=== PATIENT | female | born 1950 | race Caucasian/White ===

== ENCOUNTER 2022-08-05 14:08 | Emergency (ER) | payer OTHER ==
[~2022-08-05] VITALS: Ht 162.6 cm; Wt 86.2 kg
[2022-08-05 14:19] VITALS: BP 141/67
[2022-08-05 17:00] LABS: APPEARANCE,URINE CLEAR (CLEAR); BILIRUBIN,URINE NEGATIVE (NEGATIVE); BLOOD, URINE 2+ (NEGATIVE); COLOR,URINE YELLOW (YELLOW); LEUKOCYTE ESTERASE ,URINE 3+ (NEGATIVE); NITRITE, URINE POSITIVE (NEGATIVE); UGLUCOSE NEGATIVE (NEGATIVE)
[2022-08-05 17:14] LABS: BASOPHILS # (AUTO) 0.1 K/uL (0.00-0.22); BASOPHILS % (AUTO) 0.7 % (0.0-2.0); EOSINOPHILS # (AUTO) 0.3 K/uL (0-0.4); EOSINOPHILS % (AUTO) 3.6 % (0.0-4.0); HEMATOCRIT 40.1 % (36-48); LYMPHOCYTES # (AUTO) 2.8 K/uL (2.5-16.5); LYMPHOCYTES % (AUTO) 34.1 % (20.5-51.1); MEAN CORPUSCULAR HEMOGLOBIN 29 pg (27-31); MEAN CORPUSCULAR HGB CONC 33 g/dL (33-37); MEAN CORPUSCULAR VOLUME 87.5 fL (80-94); MONOCYTES # (AUTO) 0.5 K/uL (0.8-1.0); MONOCYTES % (AUTO) 6.6 % (1.7-9.3); NEUTROPHILS # (AUTO) 4.6 K/uL (1.8-7.7); PLATELET COUNT (AUTO) 283 K/uL (140-450); RED BLOOD CELL COUNT(AUTO) 4.58 MIL/uL (4.20-5.40); RED CELL DISTRIBUTION WIDTH 14.6 % (11.6-13.7); WHITE BLOOD COUNT (AUTO) 8.3 K/uL (4.8-10.8)
[2022-08-05 17:41] LABS: ALBUMIN 3.9 g/dL (3.4-5.0); ANION GAP 10.9 (8-16); ASPARTATE AMINOTRANSFERASE 17 U/L (15-37); CARBON DIOXIDE 29.1 mmol/L (21-32); CHLORIDE 103 mmol/L (98-107); CREATININE 0.5 mg/dL (0.6-1.3); GLUCOSE 91 mg/dL (74-106); SODIUM SERUM 139 mmol/L (136-145); TOTAL BILIRUBIN 0.6 mg/dL (0.0-1.0); UREA NITROGEN, BLOOD 12 mg/dL (7-18)
[2022-08-05] MEDS ORDERED: KETOROLAC 15 MG/ML VIAL IM ONE (18:25)
[2022-08-05] MEDS ORDERED: LIDOCAINE 5% 1 EA PATCH TP SCH (18:25)
[2022-08-05] MEDS ORDERED: BENZ200C4 PO (18:28)
[2022-08-05] MEDS ORDERED: ALBU0.0912 INH (18:28)
[2022-08-05] MEDS ORDERED: ACET-10509 PO (18:28)
[2022-08-05] MEDS ORDERED: LID5T TP (18:28)
--- NOTE | 2022-08-05 19:30 | NUR ---
Note manuel in ED - 08/05/22 at 1947 by [id number] Patient resting in bed, A/Ox4, chest rise and fall symmetrical, no c/o pain or s/s of distress.
--- NOTE | 2022-08-05 19:44 | NUR ---
Patient resting in bed, A/Ox4, chest rise and fall symmetrical, no c/o pain or s/s of distress.
[2022-08-05 19:45] VITALS: BP 122/68
--- NOTE | 2022-08-05 19:46 | NUR ---
Patient discharged with v/s stable. Written and verbal after care instructions given and explained. Patient alert, oriented and verbalized understanding of instructions. Wheel Chair Assisted with to car. All questions addressed prior to discharge. ID band removed. Patient advised to follow up with PMD. Rx given to patient. Patient educated on indication of medication including possible reaction and side effects. Opportunity to ask questions provided and answered.
== END 2022-08-05 19:45 | disposition home or self-care (01) ==
LOC: MED 14:08
DX: J20.9 Acute bronchitis, unspecified (principal); M25.511 Pain in right shoulder; I25.10 Atherosclerotic heart disease of native coronary artery without angina pectoris; E78.5 Hyperlipidemia, unspecified; Z88.8 Allergy status to other drugs, medicaments and biological substances; Z79.899 Other long term (current) drug therapy
CPT/HCPCS: 36415; 71045; 80053; 81001; 83880; 84484; 85025; 85379; 87086; 93005; 96372; 99285; J1885; Q0092

== ENCOUNTER 2022-10-17 14:56 | Emergency (ER) | payer OTHER ==
[~2022-10-17] VITALS: Ht 157.5 cm; Wt 95.3 kg
[~2022-10-17 14:56] MED LIST: ACET-10509 PO; ALBU0.0912 INH; BENZ200C4 PO; LID5T TP
[2022-10-17 15:11] VITALS: BP 117/81
--- NOTE | 2022-10-17 15:22 | NUR ---
72 y/o female bib for suprapubic catheter replacement, catheter was removed 2 hours ago. Per patient, home health nurse went to the home to change catheter and was unable to insert new one. Home Health Nurse instructed patient to come to ER for new catheter placement. Denies any pain, fever, chills or SOB. 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
[2022-10-17 16:06] LABS: BASOPHILS # (AUTO) 0.1 K/uL (0.00-0.22); BASOPHILS % (AUTO) 0.7 % (0.0-2.0); EOSINOPHILS # (AUTO) 0.3 K/uL (0-0.4); HEMATOCRIT 39.7 % (36-48); HEMOGLOBIN 13.4 g/dL (12.0-16.0); LYMPHOCYTES % (AUTO) 42.2 % (20.5-51.1); MEAN CORPUSCULAR HEMOGLOBIN 29 pg (27-31); MEAN CORPUSCULAR HGB CONC 34 g/dL (33-37); MEAN CORPUSCULAR VOLUME 86.1 fL (80-94); MONOCYTES # (AUTO) 0.5 K/uL (0.8-1.0); MONOCYTES % (AUTO) 6.2 % (1.7-9.3); NEUTROPHILS # (AUTO) 3.4 K/uL (1.8-7.7); NEUTROPHILS % (AUTO) 46.9 % (42.2-75.2); PLATELET COUNT (AUTO) 294 K/uL (140-450); RED BLOOD CELL COUNT(AUTO) 4.61 MIL/uL (4.20-5.40); RED CELL DISTRIBUTION WIDTH 14.3 % (11.6-13.7); WHITE BLOOD COUNT (AUTO) 7.2 K/uL (4.8-10.8)
[2022-10-17 16:29] LABS: ALBUMIN 3.5 g/dL (3.4-5.0); ANION GAP 8.6 (8-16); ASPARTATE AMINOTRANSFERASE 35 U/L (15-37); CARBON DIOXIDE 30.1 mmol/L (21-32); CHLORIDE 102 mmol/L (98-107); CREATININE 0.5 mg/dL (0.6-1.3); GLUCOSE 159 mg/dL (74-106); POTASSIUM 3.7 mmol/L (3.5-5.1); SODIUM SERUM 137 mmol/L (136-145); TOTAL BILIRUBIN 0.9 mg/dL (0.0-1.0); UREA NITROGEN, BLOOD 11 mg/dL (7-18)
--- NOTE | 2022-10-17 16:36 | NUR ---
# 16 FR Gil catheter with 10 ml utilizing sterile technique. Immediate return of 100 ml clear yellow urine noted. Bedside drainage bag placed below level of bladder. Urine sample collected and sent to lab. Pt tolerated procedure well.
--- NOTE | 2022-10-17 17:09 | NUR ---
The patient's care was reviewed and supervised by AMBIKA GALVEZ RN.
[2022-10-17 17:15] LABS: APPEARANCE,URINE CLEAR (CLEAR); BILIRUBIN,URINE NEGATIVE (NEGATIVE); BLOOD, URINE 3+ (NEGATIVE); LEUKOCYTE ESTERASE ,URINE 1+ (NEGATIVE); NITRITE, URINE NEGATIVE (NEGATIVE); PH,URINE 5.5 (5.0-9.0); UGLUCOSE NEGATIVE (NEGATIVE)
[2022-10-17 17:21] LABS: COLOR,URINE STRAW (YELLOW); RBC,URINE 0-5 /HPF (0-5)
[2022-10-17] MEDS ORDERED: SULF-59 PO (17:27)
[2022-10-17 17:48] VITALS: BP 136/85
--- NOTE | 2022-10-17 17:48 | NUR ---
Patient discharged with v/s stable. Written and verbal after care instructions given. Patient alert, oriented and verbalized understanding of instructions. Wheel Chair Assisted with by caregiver. All questions addressed prior to discharge. ID band removed. Patient advised to follow up with PMD. Rx of BACTRIM DS given. Opportunity to ask questions provided and answered.
== END 2022-10-17 17:48 | disposition home or self-care (01) ==
LOC: MED 14:56
DX: T83.011A Breakdown (mechanical) of indwelling urethral catheter, initial encounter (principal); N39.0 Urinary tract infection, site not specified; E11.9 Type 2 diabetes mellitus without complications; I10 Essential (primary) hypertension; Z20.822 Contact with and (suspected) exposure to COVID-19; Z95.0 Presence of cardiac pacemaker; Z90.49 Acquired absence of other specified parts of digestive tract; Z98.890 Other specified postprocedural states; Z79.899 Other long term (current) drug therapy; Z88.1 Allergy status to other antibiotic agents; Z88.8 Allergy status to other drugs, medicaments and biological substances
CPT/HCPCS: 36415; 51702; 80053; 81001; 85025; 87086; 93005; 99284; 99285

== ENCOUNTER 2023-06-15 11:46 | Emergency (ER) | payer BC, OTHER ==
[~2023-06-15] VITALS: Ht 152.4 cm; Wt 79.4 kg
[~2023-06-15 11:46] MED LIST changes: +SULF-59 PO
[2023-06-15 12:00] VITALS: BP 98/55; PULSE 61; RESP 18; TEMP 98.3; O2SAT 98
[2023-06-15] MEDS ORDERED: CEPH-588 PO (14:03)
[2023-06-15 14:42] VITALS: BP 122/65; PULSE 60; RESP 20; TEMP 96.9; O2SAT 0
[2023-06-15 15:28] LABS: APPEARANCE,URINE CLEAR (CLEAR); BILIRUBIN,URINE NEGATIVE (NEGATIVE); BLOOD, URINE 2+ (NEGATIVE); COLOR,URINE YELLOW (YELLOW); LEUKOCYTE ESTERASE ,URINE NEGATIVE (NEGATIVE); NITRITE, URINE NEGATIVE (NEGATIVE); PROTEIN,URINE 3+ (NEGATIVE); UGLUCOSE 1+ (NEGATIVE); UROBILINOGEN,URINE 0.2 EU/dL (0.2 - 1)
[2023-06-15 15:39] LABS: RBC,URINE 11-20 (MOD) /HPF (0-5); WBC,URINE 0 /HPF (0-5)
[2023-06-15 15:40] LABS: BACTERIA,URINE 1+ /HPF (None Seen); MUCUS,URINE None Seen /LPF (None Seen); SQUAMOUS EPITHELIAL CELL,UR 4-10 (MOD) /LPF (0-3 (FEW))
== END 2023-06-15 14:45 | disposition home or self-care (01) ==
LOC: MED 11:46
DX: N39.0 Urinary tract infection, site not specified (principal); N31.2 Flaccid neuropathic bladder, not elsewhere classified; E11.9 Type 2 diabetes mellitus without complications; I11.9 Hypertensive heart disease without heart failure; Z86.73 Personal history of transient ischemic attack (TIA), and cerebral infarction without residual deficits; Z79.4 Long term (current) use of insulin; Z79.899 Other long term (current) drug therapy
CPT/HCPCS: 51701; 81001; 87086; 99284

== ENCOUNTER 2023-11-13 14:34 | Emergency (ER) | payer BC, OTHER ==
[~2023-11-13] VITALS: Ht 162.6 cm; Wt 79.4 kg
[~2023-11-13 14:34] MED LIST changes: +CEPH-588 PO
[2023-11-13 15:03] VITALS: BP 104/59; PULSE 60; RESP 19; TEMP 97.5; O2SAT 98
[2023-11-13 17:25] VITALS: BP 104/59; PULSE 60; RESP 19; TEMP 97.5; O2SAT 98
== END 2023-11-13 17:27 | disposition home or self-care (01) ==
LOC: MED 14:34
DX: T83.098A Other mechanical complication of other urinary catheter, initial encounter (principal); I11.9 Hypertensive heart disease without heart failure; E11.9 Type 2 diabetes mellitus without complications; Z86.73 Personal history of transient ischemic attack (TIA), and cerebral infarction without residual deficits; Z88.8 Allergy status to other drugs, medicaments and biological substances; Z79.4 Long term (current) use of insulin; Z79.899 Other long term (current) drug therapy
CPT/HCPCS: 51702; 99284